=== PATIENT | male | born 1995 | race Two or more races ===

== ENCOUNTER 2018-06-22 17:19 | Emergency (ER) | payer BC ==
[2018-06-22] MEDS ORDERED: Ibuprofen TAB* 600 MG PO ONE (18:07)
--- NOTE | 2018-06-22 19:23 | ED ---
Adult Trauma - HPI Summary HPI Summary: Patient complains of left lower back pain after slipping on the ice and hitting left lower back on the edge of a curb behind him. Denies any other pain, injury or symptoms. Patient ambulatory but with pain and lower back. Denies urinary retention, incontinence, loss of sensation in lower extremities. - History of Current Complaint Chief Complaint: EDHipPelvisInjury Stated Complaint: FALL/ BACK PAIN Time Seen by Provider: 06/22/18 17:50 Hx Obtained From: Patient Mechanism of Injury: Fall Loss of Consciousness: no loss of consciousness Onset of Pain: Immediate Onset Severity: Moderate Current Severity: Moderate Pain Intensity: 5 Pain Scale Used: 0-10 Numeric Location: Back Character: Aching, Sharp Aggravating Factor(s): Movement, Ambulation Alleviating Factor(s): Rest Associated Signs & Symptoms: Positive: Negative - Allergy/Home Medications Allergies/Adverse Reactions: Allergies Allergy/AdvReac Type Severity Reaction Status Date / Time No Known Allergies Allergy Verified 06/28/16 13:52 PMH/Surg Hx/FS Hx/Imm Hx Endocrine/Hematology History: Denies: Hx Anticoagulant Therapy Cardiovascular History: Denies: Hx Cardiac Arrest History: Denies: Hx Dialysis Sensory History: Denies: Hx Eye Prosthesis Opthamlomology History: Denies: Hx Legally Blind EENT History: Denies: Hx Deafness Neurological History: Denies: Hx Developmental Delay Psychiatric History: Denies: Hx Autism Infectious Disease History: No Infectious Disease History: Reports: Traveled Outside the [place] in Last 30 Days - Social History Alcohol Use: None Substance Use Type: Reports: None Smoking Status (MU): Never Smoked Tobacco Review of Systems Constitutional: Negative Eyes: Negative ENT: Negative Cardiovascular: Negative Respiratory: Negative Gastrointestinal: Negative Genitourinary: Negative Musculoskeletal: Other Skin: Negative Neurological: Negative Psychological: Normal All Other Systems Reviewed And Are Negative: Yes Physical Exam - Summary Physical Exam Summary: Abrasion to left lower back. Tenderness with palpation. Very mild tenderness along L-spine. PMS intact distally in bilateral lower extremities. No ecchymosis, erythema, deformity or swelling noted to lower back bilaterally. Triage Information Reviewed: Yes Vital Signs On Initial Exam: Initial Vitals Temp Pulse Resp BP Pulse Ox 97.8 F 78 18 125/67 98 06/22/18 17:32 06/22/18 17:32 06/22/18 17:32 06/22/18 17:32 06/22/18 17:32 Vital Signs Reviewed: Yes Appearance: Positive: Well-Appearing Skin: Positive: Warm Head/Face: Positive: Normal Head/Face Inspection Eyes: Positive: Normal Neck: Positive: Supple Respiratory/Lung Sounds: Positive: Clear to Auscultation Cardiovascular: Positive: Normal Abdomen Description: Positive: Nontender Musculoskeletal: Positive: Normal Neurological: Positive: Normal Psychiatric: Positive: Normal AVPU Assessment: Alert - [place] Coma Scale Best Eye Response: 4 - Spontaneous Best Motor Response: 6 - Obeys Commands Best Verbal Response: 5 - Oriented Coma Scale Total: 15 Diagnostics - Vital Signs Vital Signs Temp Pulse Resp BP Pulse Ox 06/22/18 17:32 97.8 F 78 18 125/67 98 - Laboratory Lab Statement: Any lab studies that have been ordered have been reviewed, and results considered in the medical decision making process. Adult Trauma Course/Dx - Course Course Of Treatment: Patient complains of left lower back pain after slipping on the ice and hitting left lower back on the edge of a curb behind him. Denies any other pain, injury or symptoms. Patient ambulatory but with pain and lower back. Denies urinary retention, incontinence, loss of sensation in lower extremities. Physical exam:Abrasion to left lower back. Tenderness with palpation. Very mild tenderness along L-spine. PMS intact distally in bilateral lower extremities. No ecchymosis, erythema, deformity or swelling noted to lower back bilaterally. X-ray of L-spine and pelvis unremarkable. Patient requested crutches to help him ambulate. - Diagnoses Provider Diagnoses: Fall Discharge - Sign-Out/Discharge Documenting (check all that apply): Patient Departure - Discharge Plan Condition: Stable Disposition: HOME Patient Education Materials: Acute Low Back Pain (ED) Referrals: No Primary Care Phys,NOPCP [Primary Care Provider] - Additional Instructions: Ibuprofen, ice, rest for back pain. Follow-up with orthopedics Dr. Long if symptoms persist more than 5 days. Return to the ED for any new or worsening symptoms - Billing Disposition and Condition Condition: STABLE Disposition: Home
[2018-06-22 19:40] VITALS: BP 121/81
== END 2018-06-22 19:37 | disposition home or self-care (01) ==
LOC: ED 17:19
DX: M54.5 Low back pain (principal); Z91.81 History of falling
CPT/HCPCS: 72110; 72170; 99282; A9270-GY